=== PATIENT | male | born 1940 | race Caucasian/White ===

== ENCOUNTER 2021-03-10 20:27 | Emergency (ER) | payer MEDICARE ==
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
[2021-03-10] MEDS ORDERED: Acetaminophen 325 MG Tab PO ONE (22:29)
== END 2021-03-11 00:31 | disposition home or self-care (01) ==
LOC: JP.ED 20:27
DX: R41.3 Other amnesia (principal)
CPT/HCPCS: 36415; 80053; 80305; 80307; 81001; 83605; 85025; 99285; A9270

== ENCOUNTER 2021-03-11 17:33 | Emergency (ER) | payer MEDICARE ==
--- NOTE | 2021-03-11 19:01 | EDM.PDOCBH ---
ED HPI GENERAL MEDICAL PROBLEM - General Chief Complaint: Behavioral/Psych Stated Complaint: MEDICAL VIA NORTH Time Seen by Provider: 03/11/21 18:58 Source of Information: Reports: Patient, Family, Old Records, RN Notes Reviewed History Limitations: Reports: Physical Impairment - History of Present Illness INITIAL COMMENTS - FREE TEXT/NARRATIVE: 80-year-old gentleman presents emergency department today with family members concerned about change in behavior. He has a known history of intraparenchymal bleed earlier this summer. Also a urinary tract infection that has caused change in behavior. His is with her today is able to provide a lot more information than last night he was in the emergency room for the same complaint at which time blood work was done really nothing unremarkable he was quite lucid last night during exam only would misplace a few items mainly location and was having difficulty recalling some events in the past. After discussion with the family last night they stated he has done this multiple times. However today I am able to interview his who provides a lot more information than what was available last night. He did visit with his primary care today and their concern is that he is developing aspects of dementia they have set him up for neuropsych theatric testing. is mainly concerned given his history of intraparenchymal bleed that something may have changed therefore he is most concerned about a CAT scan of the head. - Related Data Allergies Allergy/AdvReac Type Severity Reaction Status Date / Time No Known Allergies Allergy Verified 03/11/21 17:39 Home Meds: Home Meds Cholecalciferol (Vitamin D3) [Vitamin D3] 1 tab PO DAILY 03/10/21 [History] Furosemide [Lasix] 1 tab PO DAILY 03/10/21 [History] Gabapentin [Neurontin] 1 tab PO TID 03/10/21 [History] Meclizine [Antivert] 1 tab PO TID 03/10/21 [History] Mirtazapine [Remeron] 1 tab PO BEDTIME 03/10/21 [History] Oxybutynin Chloride [Oxybutynin Chloride ER] 1 tab PO DAILY 03/10/21 [History] atorvaSTATin [Lipitor] 1 tab PO DAILY 03/10/21 [History] buPROPion HCL [Bupropion Xl] 1 tab PO DAILY 03/10/21 [History] cephALEXin [Keflex] 1 tab PO BID 03/10/21 [History] Past Medical History HEENT History: Reports: Hard of Hearing Neurological History: Reports: CVA Dermatologic History: Reports: Other (See Below) Other Dermatologic History: healing wounds on lower legs - Past Surgical History Musculoskeletal Surgical History: Reports: Hip Replacement Social & Family History - Tobacco Use Tobacco Use Status *Q: Never Tobacco User - Caffeine Use Caffeine Use: Reports: None ED ROS GENERAL - Review of Systems Review Of Systems: Unable To Obtain Reason Not Obtained: Because of his memory issues the majority of this is taken from r ED EXAM, BEHAVIORAL HEALTH - Physical Exam Exam: See Below Exam Limited By: Altered Mental Status General Appearance: Alert, No Apparent Distress Respiratory/Chest: No Respiratory Distress Neurological: Alert, CN II-XII Intact, No Motor/Sensory Deficits, Disoriented to Time. No: Disoriented to Person, Disoriented to Place COURSE, BEHAVIORAL HEALTH COMP - Course Vital Signs: Last Vital Signs Temp 98.2 F 03/11/21 17:44 Pulse 65 03/11/21 17:44 Resp 20 03/11/21 17:44 BP 142/58 H 03/11/21 17:44 Pulse Ox 95 03/11/21 17:44 Departure - Departure Time of Disposition: 20:40 Disposition: Home, Self-Care 01 Condition: Poor Clinical Impression: Memory problem - Discharge Information Referrals: PCP,Unknown [Primary Care Provider] - Forms: ED Department Discharge Additional Instructions: Keep your appointment with neuropsychiatry, call return to the emergency department worsening of symptoms Sepsis Event Note (ED) - Evaluation Sepsis Screening Result: No Definite Risk - Focused Exam Vital Signs: Vital Signs Temp Pulse Resp BP Pulse Ox 03/11/21 17:44 98.2 F 65 20 142/58 H 95 03/11/21 17:33 98.1 F 72 16 142/58 H 95 - Assessment/Plan Plan: Assessment Acuity = acute Site and laterality = behavioral issues Etiology = suspicious for underlying dementia secondary to CVA Manifestations = none Location of injury = Home Lab values = CT scan of the head shows no acute process chronic infarction Plan I did Splane this to his very understanding provided copy the CT scan results they do have an appointment with neuropsychiatry for further evaluation This note was dictated using [employer] voice recognition software please call with any questions on syntax or grammar.
--- NOTE | 2021-03-11 20:13 | CRLCT ---
For Patients: As a result of the Century Cures Act, medical imaging exams and procedure reports are released immediately into your electronic medical record. You may view this report before your referring provider. If you have questions, please contact your health care provider. INDICATION: Behavioral changes. History of cerebrovascular accident. TECHNIQUE: CT of the head without contrast. Coronal and sagittal reformats are included. COMPARISON: None. FINDINGS: No CT evidence of acute cortical infarct. No hyperdense vessels to suggest intracranial thrombus. No acute intracranial hemorrhage. No mass effect or midline shift. No hydrocephalus or extra-axial collections. Moderate generalized parenchymal volume loss. Chronic cortical infarcts within the right frontal lobe and right temporal lobe. Subtle chronic cortical infarct right occipital lobe. Extensive confluent hypoattenuation within the supratentorial white matter, typical for chronic microvascular ischemic changes. Vascular calcifications carotid siphons. No acute osseous abnormalities. Giant arachnoid granulation right lateral occipital calvarium. Mastoid air cells and paranasal sinuses are clear. Normal soft tissues. IMPRESSION: 1. No acute infarction, intracranial hemorrhage or other acute intracranial pathology. 2. 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 3. Moderate generalized parenchymal volume loss. Relatively advanced burden of chronic microvascular ischemic changes within the supratentorial white matter. Please note that all CT scans at this facility use dose modulation, iterative reconstruction, and/or weight-based dosing when appropriate to reduce radiation dose to as low as reasonably achievable. Dictated by Landry La MD @ 03/11/2021 8:12:27 PM (Electronically Signed)
== END 2021-03-11 21:30 | disposition home or self-care (01) ==
LOC: JP.ED 17:33
DX: R41.3 Other amnesia (principal); R41.82 Altered mental status, unspecified; Z86.73 Personal history of transient ischemic attack (TIA), and cerebral infarction without residual deficits; Z79.899 Other long term (current) drug therapy
CPT/HCPCS: 70450; 99285-25